=== PATIENT | female | born 1990 | race Caucasian/White ===

== ENCOUNTER → 2016-03-17 | Outpatient (CLI) | payer OTHER ==
--- NOTE | 2016-03-17 14:24 | MA ---
Diagnostic Unilateral Left Side Digital Mammogram with Digital Breast Tomosynthesis Clinical Indications: Palpable lump inframedial left breast tissue. Previous benign findings ultrasou nd. Technique: Standard left cephalocaudal projection is obtained. Digital breast tomosynthesis was perf ormed in the MLO projection of the left breast with reconstruction at 1.0 mm slice thickness and comp osite MLO views reconstructed. This examination is processed by the CAD computer aided detection syst em. Comparison: Ultrasound study from November 12, 2015. Breast density: C; The breasts are heterogeneously dense, which may obscure small masses. Findings: CAD was reviewed. A marker was placed over area of palpable abnormality that corresponds to the inferomedial left breas t near the chest wall. There is an island of denser breast tissue in this region of the left breast t hat corresponds to the palpable area. Review of prior ultrasound study also reveals some echogenic de nse breast parenchymal tissue in this region. No significant mass is seen. There is no axillary lymph adenopathy. Impression: Benign findings. BI-RADS 2. Recommendation: The [employer] recommends routine annual mammogram to begin at ag e 40 unless clinically indicated to perform earlier. Clinical followup is recommended on all palpable nodules. Despite negative or benign imaging, if the palpable abnormality increases in size, additional imaging followup may be necessary or possibly vaishali gical consultation. The results of this study were reviewed with the patient. [facility] will send a result letter to the patient. Negative mammography should not preclude additional workup of a clinically suspicious finding.
== END ==
LOC: FIMAGING 13:30
PROVIDERS: ATTEND Obstetrics & Gynecology
DX: Z03.89 Encounter for observation for other suspected diseases and conditions ruled out (principal)
CPT/HCPCS: G0206; G0279